=== PATIENT | female | born 2000 | race Caucasian/White ===

== ENCOUNTER → 2024-03-08 | Outpatient (CLI) | payer BC ==
[2024-03-08 14:01] LABS: BASO # 0.1 10^3/uL (0.0-0.2); EOS # 0.1 10^3/uL (0.0-0.5); EOS % 0.8 % (0.0-3.0); HEMATOCRIT 42.9 % (36.0-47.0); HEMOGLOBIN 13.5 g/dl (12.0-15.5); LYMPH # 2.1 10^3/uL (1.5-5.0); LYMPH % 29.6 % (24.0-44.0); MEAN CORPUSCULAR HEMOGLOBIN 27.5 pg (27.0-33.0); MEAN CORPUSCULAR HGB CONC 31.5 g/dl (32.0-36.5); MEAN CORPUSCULAR VOLUME 87.4 fl (80.0-96.0); MONO # 0.6 10^3/uL (0.0-0.8); MONO % 8.8 % (2.0-8.0); NEUTROPHILS # 4.2 10^3/uL (1.5-8.5); NEUTROPHILS % 59.7 % (36.0-66.0); PLATELET COUNT, AUTOMATED 441 10^3/uL (150-450); RED BLOOD COUNT 4.91 10^6/uL (4.00-5.40); WHITE BLOOD COUNT 7.1 10^3/uL (4.0-10.0)
[2024-03-08 14:06] LABS: ERYTHROCYTE SEDIMENTATION RATE 25 mm/hr (0-20)
[2024-03-08 14:32] LABS: ALBUMIN 4.1 G/DL (3.2-5.2); ALKALINE PHOSPHATASE 82 U/L (46-116); ALT/SGPT 26 U/L (7.0-40); AST/SGOT 14 U/L (<34); BILIRUBIN,TOTAL 0.3 MG/DL (0.3-1.2); BLOOD UREA NITROGEN 7 MG/DL (9-23); CALCIUM LEVEL 9.7 MG/DL (8.5-10.1); CARBON DIOXIDE LEVEL 27 MMOL/L (20-31); CHLORIDE LEVEL 103 MMOL/L (98-107); CREATININE FOR GFR 0.96 MG/DL (0.55-1.30); FOLATE 8.6 NG/ML (>5.4); FREE T4 1.39 NG/DL (0.89-1.76); GLOMERULAR FILTRATION RATE > 60.0 (>60); GLUCOSE, FASTING 79 MG/DL (60-100); SODIUM LEVEL 136 MMOL/L (136-145); THYROID STIMULATING HORMONE 0.939 uIU/ML (0.55-4.78); VITAMIN B12 LEVEL 733 PG/ML (211-911)
== END ==
LOC: M PLALAB 09:37
PROVIDERS: ATTEND Physician Assistant Surgical
DX: M25.50 Pain in unspecified joint (principal)

== ENCOUNTER → 2025-03-29 | Outpatient (REF) | payer OTHER ==
[~2025-03-29] MED LIST: BUSP5TA PO; LAMI5CHW PO; LEVO50TA5 PO; WELL100T2 PO
== END ==
LOC: M PLALAB 08:32
PROVIDERS: ATTEND Obstetrics & Gynecology
DX: Z53.9 Procedure and treatment not carried out, unspecified reason (principal)

== ENCOUNTER → 2025-07-21 | Outpatient (CLI) | payer OTHER ==
[~2025-07-21] MED LIST changes: +BUPR150T12 PO; +LAMI1TAB8 PO; +LEVO100T5 PO; +PRENTAB9 PO
[2025-07-21 16:33] LABS: FREE T4 1.26 NG/DL (0.89-1.76)
== END ==
LOC: M PLALAB 12:04
PROVIDERS: ATTEND Advanced Practice Midwife
DX: E03.9 Hypothyroidism, unspecified (principal)